=== PATIENT | female | born 1995 | race American Indian/Alaskan Native ===

== ENCOUNTER 2017-11-16 11:30 | Emergency (ER) | payer SELFPAY ==
[2017-11-16 11:47] VITALS: BP 129/70
[2017-11-16 12:16] LABS: Bilirubin,Urine NEG (Negative); Blood,Urine LG (Negative); Color,Urine Yellow (Yellow); Mucus,Urine 3+ /HPF; Urobilinogen,Urine < 2.0 mg/dL (<2.0)
[2017-11-16 12:20] LABS: RBC,Urine > 182.0 /HPF (0.0-6.0)
[2017-11-16 12:21] LABS: HCG Qualitative,Urine Negative (Negative)
--- NOTE | 2017-11-16 15:46 | Emergency Department Report ---
ED Dysuria HPI - HPI Chief Complaint: Vaginal Bleeding Stated Complaint: ABDOMINAL PAIN/BLOOD CLOTS Time Seen by Provider: 11/16/17 15:38 Duration: 2 M ABN MENSES Location of Discomfort: Suprapubic Severity: Mild Symptoms: Dysuria: No, Frequency: No, Suprapubic Pain: No, Flank Pain: No, Fever : No, Hematuria: No, Abdominal Pain: No, Previous UTI's: No ED Review of Systems ROS: Stated complaint: ABDOMINAL PAIN/BLOOD CLOTS Other details as noted in HPI Comment: All other systems reviewed and negative Constitutional: denies: chills, fever Eyes: denies: eye pain ENT: denies: ear pain, throat pain Respiratory: denies: cough, orthopnea Cardiovascular: denies: chest pain, palpitations, dyspnea on exertion, orthopnea Endocrine: denies: flushing Gastrointestinal: denies: abdominal pain, nausea, vomiting, diarrhea, constipation, hematemesis, melena, hematochezia Genitourinary: abnormal menses. denies: urgency, dysuria, frequency, hematuria , discharge, dyspareunia Musculoskeletal: denies: back pain Skin: denies: rash, lesions Neurological: denies: headache, weakness Psychiatric: denies: anxiety, depression Hematological/Lymphatic: denies: easy bleeding ED Past Medical Hx - Past Medical History Previous Medical History?: No - Surgical History Past Surgical History?: No - Family History Family history: no significant - Social History Smoking Status: Never Smoker Substance Use Type: None - Medications Home Medications: Home Medications Medication Instructions Recorded Confirmed Last Taken Type Metoclopramide [Reglan] 10 mg PO Q6H PRN #15 tablet 12/24/12 Unknown Rx Nitrofurantoin [place]/M-Cryst 100 mg PO Q12HR #6 capsule 12/24/12 Unknown Rx [Macrobid] ALBUTEROL Inhaler (OR & NICU) 2 puff IH QID PRN #1 inhalation 10/24/15 Unknown Rx [ProAir HFA Inhaler] Fluticasone [Flonase] 1 spray NS QDAY #1 bottle 10/24/15 Unknown Rx Prednisone [predniSONE 10 mg 10 mg PO .TAPER #1 tab.ds.pk 10/24/15 Unknown Rx (6-Day Pack, 21 Tabs)] Dysuria Exam - Exam General: Vital signs noted. No distress. Alert and acting appropriately. Exam: Yes Moist Mucous Membranes, No CVA Tenderness, No Abdominal Tenderness, No Rigidity or Guarding Exam: ABD SNT. ABN PERIOIDS. HERE BC CONCERNED SHES . NO PAIN. LIGHT VAG SPOTTING NOW Labs: Lab Results 11/16/17 Range/Units 11:58 Urine Color Yellow (Yellow) Urine Turbidity Cloudy (Clear) Urine pH 5.0 (5.0-7.0) Ur Specific [place] 1.025 (1.003-1.030) Urine Protein 100 mg/dl (Negative) mg/dL Urine Glucose (UA) Neg (Negative) mg/dL Urine Ketones Neg (Negative) mg/dL Urine Blood Lg (Negative) Urine Nitrite Neg (Negative) Urine Bilirubin Neg (Negative) Urine Urobilinogen < 2.0 (<2.0) mg/dL Ur Leukocyte Esterase Tr (Negative) Urine WBC (Auto) 75.0 H (0.0-6.0) /HPF Urine RBC (Auto) > 182.0 (0.0-6.0) /HPF U Epithel Cells (Auto) 10.0 (0-13.0) /HPF Urine Mucus 3+ /HPF Urine HCG, Qual Negative (Negative) ED Course Vital Signs 11/16/17 11:43 Temperature 98.2 F Pulse Rate 90 Respiratory 16 Rate Blood Pressure 129/70 O2 Sat by Pulse 97 Oximetry ED Medical Decision Making - Medical Decision Making HERE BC CONCERNED PREG UPREG NEG - Differential Diagnosis RO PREG Critical care attestation.: If time is entered above; I have spent that time in minutes in the direct care of this critically ill patient, excluding procedure time. ED Disposition Clinical Impression: Abnormal menses Disposition: TO HOME OR SELFCARE Is pt being admited?: No Does the pt Need Aspirin: No Condition: Stable Instructions: Menstruation (ED), Dysmenorrhea (ED), Mittelschmerz (ED), Menorrhagia (ED) Referrals: PRIMARY CARE, [Primary Care Provider] - 3-5 Days ANGÉLICA DONG MD [Referring] - 3-5 Days CODIE MAKI MD [Staff Physician] - 3-5 Days Time of Disposition: 15:42
== END 2017-11-16 15:57 | disposition home or self-care (01) ==
LOC: ED 11:30
DX: R30.0 Dysuria (principal); N92.6 Irregular menstruation, unspecified
CPT/HCPCS: 81001; 81025; 99283

== ENCOUNTER 2021-01-21 23:34 | Emergency (ER) | payer SELFPAY ==
--- NOTE | 2021-01-21 23:42 | Emergency Department Report ---
ED HPI - General Chief complaint: Vaginal Bleeding Stated complaint: VAGINAL BLEEDING Time Seen by Provider: 01/21/21 23:42 Source: patient Mode of arrival: Ambulatory Limitations: No Limitations - History of Present Illness Initial comments: Patient just found out she is . She believes she is about 5 weeks by dates. She came in today because of lower abdominal cramping associated vaginal bleeding. There is no trauma. She has no fevers or chills. There is no bleeding from other sites. Cramping is in the lower abdomen. It does not radiate or migrate. It seems to wax and wane. Bleeding has been tank stave assembler than a period, but bright red. She has never been before. She does not know her blood type. - Related Data Previous Rx's Medication Instructions Recorded Last Taken Type Metoclopramide [Reglan] 10 mg PO Q6H PRN #15 tablet 12/24/12 Unknown Rx Nitrofurantoin [place]/M-Cryst 100 mg PO Q12HR #6 capsule 12/24/12 Unknown Rx [Macrobid] Albuterol Mdi (or & Nicu Only) 2 puff IH QID PRN #1 inhalation 10/24/15 Unknown Rx [ProAir HFA Inhaler] Fluticasone [Flonase] 1 spray NS QDAY #1 bottle 10/24/15 Unknown Rx Prednisone [predniSONE 10 mg 10 mg PO .TAPER #1 tab.ds.pk 10/24/15 Unknown Rx (6-Day Pack, 21 Tabs)] Allergies Allergy/AdvReac Type Severity Reaction Status Date / Time No Known Allergies Allergy Verified 01/21/21 23:40 ED Review of Systems ROS: Stated complaint: VAGINAL BLEEDING Other details as noted in HPI Comment: All other systems reviewed and negative Constitutional: denies: fever Eyes: denies: vision change ENT: denies: throat pain Respiratory: denies: cough Cardiovascular: denies: chest pain Endocrine: denies: unexplained weight loss Gastrointestinal: as per HPI Genitourinary: as per HPI Musculoskeletal: denies: back pain Skin: denies: rash Neurological: denies: headache Hematological/Lymphatic: denies: easy bruising ED Past Medical Hx - Past Medical History Previous Medical History?: No - Surgical History Past Surgical History?: No - Social History Smoking Status: Never Smoker Substance Use Type: None - Medications Home Medications: Home Medications Medication Instructions Recorded Confirmed Last Taken Type Metoclopramide [Reglan] 10 mg PO Q6H PRN #15 tablet 12/24/12 Unknown Rx Nitrofurantoin [place]/M-Cryst 100 mg PO Q12HR #6 capsule 12/24/12 Unknown Rx [Macrobid] Albuterol Mdi (or & Nicu Only) 2 puff IH QID PRN #1 inhalation 10/24/15 Unknown Rx [ProAir HFA Inhaler] Fluticasone [Flonase] 1 spray NS QDAY #1 bottle 10/24/15 Unknown Rx Prednisone [predniSONE 10 mg 10 mg PO .TAPER #1 tab.ds.pk 10/24/15 Unknown Rx (6-Day Pack, 21 Tabs)] ED Physical Exam - General Limitations: No Limitations, Other (Pulse ox noted normal) General appearance: alert, in no apparent distress - Head Head exam: Present: atraumatic, normocephalic - Eye Eye exam: Present: normal appearance, EOMI. Absent: scleral icterus - ENT ENT exam: Present: normal exam, mucous membranes moist - Neck Neck exam: Present: normal inspection. Absent: meningismus - Respiratory Respiratory exam: Present: normal lung sounds bilaterally. Absent: respiratory distress - Cardiovascular Cardiovascular Exam: Present: regular rate, normal rhythm - GI/Abdominal GI/Abdominal exam: Present: soft. Absent: tenderness - Extremities Exam Extremities exam: Present: normal capillary refill. Absent: pedal edema - Back Exam Back exam: Absent: CVA tenderness (R), CVA tenderness (L) - Neurological Exam Neurological exam: Present: alert, oriented X3, normal gait - Psychiatric Psychiatric exam: Present: normal affect, normal mood - Skin Skin exam: Present: warm, dry ED Course Vital Signs 01/21/21 23:36 Temperature 98.6 F Pulse Rate 104 H Respiratory 18 Rate Blood Pressure 118/82 [Right] O2 Sat by Pulse 98 Oximetry - Reevaluation(s) Reevaluation #1: 01/21/21 23:42 Labs and ultrasound ordered. Old records reviewed. Reevaluation #2: 01/22/21 04:12 Ultrasound was noted. Patient was discharged. ED Medical Decision Making - Lab Data Result diagrams: 01/21/21 23:57 - Radiology Data Radiology results: report reviewed - Medical Decision Making Patient presents with vaginal bleeding and concern for . She had a test at home that was positive. Quantitative here is low. is likely chemical. It is conceivable that she would go on to have a normal , but given her dates, it is unlikely. We have discussed outpatient management. She does not have evidence of ectopic based on her current presentation although that would not be visualized on an ultrasound at this point. She can follow-up with gynecology. Critical Care Time: No Critical care attestation.: If time is entered above; I have spent that time in minutes in the direct care of this critically ill patient, excluding procedure time. ED Disposition Clinical Impression: Threatened Disposition: HOME / SELF CARE / HOMELESS Is pt being admited?: No Condition: Stable Instructions: Vaginal Bleeding During , First Trimester Additional Instructions: Drink plenty water. Return for problems. Follow-up with your software clerk for recheck and further management. Use Tylenol for pain. Referrals: PRIMARY MD RODRIGO [Primary Care Provider] - 3-5 Days GRACY ARROYO MD [Staff Physician] - 3-5 Days
[2021-01-22 00:21] LABS: Basophils # (Auto) 0.1 K/mm3 (0.0-0.1); Basophils % (Auto) 0.9 % (0.0-1.8); Eosinophils # (Auto) 0.2 K/mm3 (0.0-0.4); Eosinophils % (Auto) 2.8 % (0.0-4.3); Hematocrit 39.7 % (30.3-42.9); Hemoglobin 12.8 gm/dl (10.1-14.3); Lymphocytes # (Auto) 1.9 K/mm3 (1.2-5.4); Lymphocytes % (Auto) 24.2 % (13.4-35.0); Mean Corpuscular HGB Conc 32 % (30-34); Mean Corpuscular Volume 90 fl (79-97); Monocytes # (Auto) 0.7 K/mm3 (0.0-0.8); Monocytes % (Auto) 9.4 % (0.0-7.3); Platelet Count 342 K/mm3 (140-440)
--- NOTE | 2021-01-22 02:37 | Ultrasound Report ---
ULTRASOUND OBSTETRIC REASON FOR EXAM: bleeding TECHNIQUE: Transabdominal and transvaginal ultrasound was performed to evaluate a first trimester pre gnancy. COMPARISON: None available. FINDINGS: Uterus measures 7.4 x 3.4 x 4.1 cm. Endometrial stripe measures 11.8 mm. No IUP is identified. Left o vary is not visualized. Right ovary measures 3.8 x 1.9 x 2.4 cm. No significant cystic or solid mass in either adnexa. There is normal Doppler flow within the right ovary. No significant free fluid. IMPRESSION: of unknown location. No IUP identified. Findings could reflect an early intrauterine pregna ncy, occult ectopic , or recent spontaneous . In a hemodynamically stable patient, r ecommend follow-up with pelvic ultrasound in 7-10 days. Signer Name: Kendrick Salazar MD Signed: 01/22/2021 2:33 AM Workstation Name: [id number]
[2021-01-22 04:27] VITALS: BP 126/70
== END 2021-01-22 04:26 | disposition home or self-care (01) ==
LOC: ED 23:34
DX: O20.0 Threatened abortion (principal); Z3A.01 Less than 8 weeks gestation of pregnancy; Z79.899 Other long term (current) drug therapy
CPT/HCPCS: 36415; 76801; 84702; 85025; 86900; 86901; 99284